=== PATIENT | female | born 1970 | race Caucasian/White ===

== ENCOUNTER 2016-09-28 11:09 | Emergency (ER) | payer SELFPAY ==
[2016-09-28] MEDS ORDERED: MOTRIN PO ONE (16:45)
[2016-09-28] MEDS ORDERED: FLEXERIL PO ONE (16:45)
--- NOTE | 2016-09-28 16:59 | Emergency Department Report ---
HPI - General Chief Complaint: Pain General Time Seen by Provider: 09/28/16 16:43 - HPI HPI: Patient is a 46-year-old female who presents to ED complaining of left heel pain 6 months. Patient states she recently goes to her primary care physician who gives her cortisone injection on her heel and that helps the pain. Patient states last injection was last week . Patient states this time the injection did not work and she still experiencing some heel pain. Patient states now yesterday she began experiencing some lower mid back pain. Patient denies trauma or falling. She states the more she puts pressure on that healed the worst the pain. Patient states she does a lot of walking at work. She states primary care physician as her on [facility] for the pain. She denies fevers/chills/nausea/vomiting/abdominal pain/shortness of breath/ chest pain ED Past Medical Hx - Past Medical History Previous Medical History?: Yes Additional medical history: back pain, heel and foot pain, hip pain - Surgical History Past Surgical History?: Yes Hx Appendectomy: Yes Additional Surgical History: tubal ligation - Social History Smoking Status: Never Smoker Substance Use Type: Alcohol, Prescribed, Other - Medications Home Medications: Home Medications Medication Instructions Recorded Confirmed Last Taken Type HYDROcodone/APAP 5-325 [[place] 1 each PO Q6HR PRN #14 tablet 12/23/13 Unknown Rx 5-325 mg TAB] Cyclobenzaprine [Flexeril 10 MG 10 mg PO QHS PRN #24 tablet 09/28/16 Unknown Rx TAB] Ibuprofen [Motrin 800 MG tab] 800 mg PO TID #40 tablet 09/28/16 Unknown Rx Sulfamethoxazole/Trimethoprim 1 each PO BID #14 tablet 09/28/16 Unknown Rx [Bactrim DS TAB] ED Review of Systems ROS: Stated complaint: BACK/HIPS/HEELS Other details as noted in HPI Constitutional: denies: chills, fever Eyes: denies: eye pain, eye discharge, vision change ENT: denies: ear pain, throat pain Respiratory: denies: cough, shortness of breath, wheezing Cardiovascular: denies: chest pain, palpitations Endocrine: no symptoms reported Gastrointestinal: denies: abdominal pain, nausea, vomiting, diarrhea, constipation Genitourinary: denies: urgency, dysuria, discharge Musculoskeletal: arthralgia, myalgia. denies: back pain, joint swelling Skin: denies: rash, lesions, change in hair/nails, pruritus Neurological: denies: headache, weakness, numbness, paresthesias, confusion, abnormal gait Psychiatric: denies: anxiety, depression, suicidal thoughts Hematological/Lymphatic: denies: easy bleeding, easy bruising, swollen glands Physical Exam - Physical Exam Vital Signs: Vital Signs 09/28/16 12:52 Temperature 97.5 F L Pulse Rate 61 Respiratory 18 Rate Blood Pressure 142/83 O2 Sat by Pulse 98 Oximetry Physical Exam: GENERAL: Alert and oriented x3, no apparent distress, Normal Gait, atraumatic. HEAD: Head is normocephalic and a-traumatic. EYES: Extra ocular muscles are intact. Pupils are equal, round, and reactive to light and accommodation. EARS: symetrical, atraumatic, non tender, ear canal clear and moderate cerumen, tympanic membrance non inflamed. gross auditory nml bilaterally. NOSE: Nose symetrical, Nontender,Nares appeared normal. MOUTH:Mouth is well hydrated and without lesions. Tonsils nonerythematous or swollen, Uvula midline, Tongue not elevated. Mucous membranes are moist. Posterior pharynx clear, no exudate or lesions. Patent airways. NECK: Supple. Non edematous, No carotid bruits. No lymphadenopathy or thyromegaly. LUNGS: Symetrical with respiration, No wheezing, no rales or crackles, CTAB. HEART: S1, S2 present, regular rate and rhythm without murmur, no rubs, no gallops. ABDOMEN: No organomegaly was noted,Positive bowel sounds, soft, and non- distended. . Nontender to palpation on all Quadrants, NO CVA tenderness. EXTREMITIES/MUSCULOSKELETAL: No cyanosis, clubbing, rash, lesions or edema. Full ROM bilaterally. UE/LE Pulses 2+ bilaterally. LE and UE 5+ strength bilaterally. Straight leg negative bilaterally. No spine tenderness NEUROLOGIC: No focal Deficit, Cranial nerves II through XII are grossly intact. No loss of sensation, PSYCHIATRIC: Mood is congruent with affect, denies suicidal or homicidal ideations. SKIN: Warm and dry, No lesions, No ulceration or induration present. ED Course Vital Signs 09/28/16 12:52 Temperature 97.5 F L Pulse Rate 61 Respiratory 18 Rate Blood Pressure 142/83 O2 Sat by Pulse 98 Oximetry ED Medical Decision Making - Medical Decision Making 46-year-old female presents with chronic pain/uti ED course: Urinalysis and UPT ordered. Results show negative test. positive1+ bacteria ,UTI Discussed findings with patient. Discussed antibiotic therapy for UTI. Discussed with patient cortisone shots only occasion about 3 times a year, so she will not be given a cortisone shot in the ER. Discussed the patient and proper rest at work. Discussed the patient hit compression to her back 3 times a day. Discussed the patient call her exercises to help with Back pain. Discussed the patient in soles for her shoes to help with heel pain and alleviate some back pain. Discussed will give referral to several primary care physician or orthopedics in the area. Patient alert and oriented 3. Patient is in no distress. Vital signs stable Critical care attestation.: If time is entered above; I have spent that time in minutes in the direct care of this critically ill patient, excluding procedure time. ED Disposition Clinical Impression: Pain of left heel, Lumbar radiculopathy UTI (urinary tract infection) Qualifiers: Urinary tract infection type: acute cystitis Hematuria presence: with hematuria Qualified Code(s): N30.01 - Acute cystitis with hematuria Disposition: DISCHARGED TO HOME OR SELFCARE Is pt being admited?: No Does the pt Need Aspirin: No Condition: Stable Instructions: Lumbar Radiculopathy (ED), Arthralgia (ED), Core Strengthening Exercises (GEN), Heat Pack Application (ED), Urinary Tract Infection in Women ( ED) Prescriptions: Cyclobenzaprine [Flexeril 10 MG TAB] 10 mg PO QHS PRN #24 tablet PRN Reason: Muscle Spasm Ibuprofen [Motrin 800 MG tab] 800 mg PO TID #40 tablet Sulfamethoxazole/Trimethoprim [Bactrim DS TAB] 1 each PO BID #14 tablet Referrals: PRIMARY CARE, [Primary Care Provider] - 3-5 Days HINA BOYKIN MD [Referring] - 3-5 Days CHRISTIANO OZUNA MD [Referring] - 3-5 Days FANTASMA LÓPEZ MD [Staff Physician] - 3-5 Days [facility] [Outside] - 3-5 Days [facility] [Outside] - 3-5 Days [facility] [Outside] - 3-5 Days [facility] [Outside] - 3-5 Days Forms: Accompanied Note, Work/School Release Form(ED) Time of Disposition: 18:14 Print Language: [id number]
[2016-09-28 17:57] LABS: Bilirubin,Urine NEG (Negative); Blood,Urine NEG (Negative); Ketones,Urine NEG (Negative); Nitrite,Urine NEG (Negative); Urobilinogen,Urine < 2.0 mg/dL (<2.0)
[2016-09-28 17:58] LABS: Bacteria,Urine 1+ /HPF (Negative); Leukocyte Esterase,Urine NEG (Negative); Mucus,Urine FEW /HPF; Protein,Urine <15 mg/dL mg/dL (Negative)
[2016-09-28 18:32] VITALS: BP 140/68
== END 2016-09-28 18:38 | disposition home or self-care (01) ==
LOC: ED 11:09
DX: M79.672 Pain in left foot (principal); N30.01 Acute cystitis with hematuria; M54.16 Radiculopathy, lumbar region; Z90.49 Acquired absence of other specified parts of digestive tract; Z98.51 Tubal ligation status
CPT/HCPCS: 81001; 81025; 99282